=== PATIENT | female | born 1990 | race African-American/Black ===

== ENCOUNTER 2018-09-07 17:34 | Emergency (ER) | payer OTHER ==
[~2018-09-07] VITALS: Ht 170.2 cm; Wt 113.4 kg
[~2018-09-07 17:34] MED LIST: ACETAMINOPHEN325 M1 PO; APAP500 PO; BENADRYL25 MG PO; DERMOPLAST SPRA56 ML; IBUPROFEN 800800 M1 PO; KEFLEX500 MG PO; LANOLIN56 GM; LASIX 20 MG TAB20 MG PO; LOESTRIN1 EAC1 PO; MEDROLDOSEPACK PO; MOBIC7.5 MG PO; NORCO 5-325 TA1 EACH PO; PEPCID40 MG PO; PREDNISONE 20 M20 MG PO; PRENATAL; SLEEPING MED; TUCKS MEDICATE1 EAC1; VENTOLIN HFA 1818 GM INH; VENTOLIN17 GM INH; ZOFRAN ODT4 MG PO; ZOLOFT25 MG; ZOLOFT50 MG PO; hydrocortisone 1%
[2018-09-07] MEDS ORDERED: LASIX 20 MG TAB20 MG PO (17:40)
[2018-09-07] MEDS ORDERED: GABAPENTIN 100100 MG PO (17:41)
[2018-09-07 18:46] VITALS: BP 138/77
== END 2018-09-07 18:46 | disposition home or self-care (01) ==
LOC: ER 17:34
DX: S92.592A Other fracture of left lesser toe(s), initial encounter for closed fracture (principal); J45.909 Unspecified asthma, uncomplicated; W22.8XXA Striking against or struck by other objects, initial encounter; Y93.89 Activity, other specified; Y92.89 Other specified places as the place of occurrence of the external cause; Y99.8 Other external cause status

== ENCOUNTER 2018-11-13 17:17 | Emergency (ER) | payer OTHER ==
[~2018-11-13] VITALS: Ht 172.7 cm; Wt 113.4 kg
[~2018-11-13 17:17] MED LIST changes: +GABAPENTIN 100100 MG PO
[2018-11-13 17:50] LABS: ABSOLUTE NEUTROPHILS 2.9 thou/uL (1.4-8.2); BASOPHILS 0.8 % (0.0-2.0); EOSINOPHILS 2.5 % (0.0-3.0); HEMATOCRIT 40.4 % (37.0-47.0); HEMOGLOBIN 13.3 gm/dL (12.0-15.0); LYMPHOCYTES 43.6 % (24.0-44.0); MCHC 32.9 g/dL (28.0-37.0); MCV 88.3 fL (80.0-100.0); MONOCYTES 7.1 % (1.0-8.0); PLATELET COUNT 249 thou/uL (150-400); RBC 4.57 mil/uL (4.20-5.00); RDW 13.8 % (10.5-14.5); WBC 6.3 thou/uL (4.0-11.0)
[2018-11-13 17:54] LABS: CALCIUM 9.4 mg/dL (8.5-10.1); CREATININE 0.8 mg/dL (0.6-1.0); POTASSIUM 3.9 mmol/L (3.5-5.1)
[2018-11-13 18:00] LABS: ALBUMIN 3.6 g/dL (3.4-5.0); TOTAL BILIRUBIN 0.3 mg/dL (<0.1-1.0); TOTAL PROTEIN 7.6 g/dL (6.4-8.2)
[2018-11-13] MEDS ORDERED: IBUPROFEN 800800 M1 PO (18:21)
[2018-11-13] MEDS ORDERED: ATROPINE SULFATE2 ML OPHTHALMIC (20:48)
[2018-11-13] MEDS ORDERED: TOBRAMYCIN SULFA5 M1 OPHTHALMIC (20:48)
[2018-11-13 21:26] VITALS: BP 112/63
== END 2018-11-13 21:30 | disposition home or self-care (01) ==
LOC: ER 17:17
PROVIDERS: Emergency Medicine Emergency Medical Services
DX: H20.00 Unspecified acute and subacute iridocyclitis (principal); H10.9 Unspecified conjunctivitis; J45.909 Unspecified asthma, uncomplicated

== ENCOUNTER → 2020-03-23 | Outpatient (CLI) | payer OTHER ==
[~2020-03-23] MED LIST changes: +ATROPINE SULFATE2 ML OPHTHALMIC; +TOBRAMYCIN SULFA5 M1 OPHTHALMIC
== END ==
LOC: LAB 14:22
PROVIDERS: ATTEND Nurse Practitioner
DX: R05 Cough (principal); Z20.822 Contact with and (suspected) exposure to COVID-19